=== PATIENT | female | born 1995 | race Caucasian/White ===

== ENCOUNTER 2023-07-18 19:22 | Emergency (ER) | payer OTHER ==
[~2023-07-18] VITALS: Ht 154.9 cm; Wt 80.7 kg
[2023-07-18 21:09] LABS: HEMATOCRIT 38.4 % (36.0-45.00); HEMOGLOBIN 12.7 g/dL (12.0-15.00); MEAN CELL VOLUME 88.9 fL (80.00-100.00); MEAN CORPUSCULAR HEMOGLOBIN 29.4 pg (27.00-32.0); MEAN CORPUSCULAR HGB CONC 33.1 g/dl (32.0-36.0); PLATELET COUNT 234 K/uL (150-450); RED BLOOD COUNT 4.31 M/uL (4.00-6.00); RED CELL DISTRIBUTION WIDTH 15.6 % (11.5-14.5)
[2023-07-18] MEDS ORDERED: NORFLEX100MG PO (21:59)
[2023-07-18] MEDS ORDERED: DICLOFENAC POTA50 MG PO (21:59)
== END 2023-07-18 22:55 | disposition home or self-care (01) ==
LOC: ER 19:23
PROVIDERS: General Practice
DX: R07.89 Other chest pain (principal)

== ENCOUNTER 2024-12-24 22:25 | Emergency (ER) | payer OTHER ==
[~2024-12-24] VITALS: Ht 154.9 cm; Wt 68.0 kg
[~2024-12-24 22:25] MED LIST: DICLOFENAC POTA50 MG PO; NORFLEX100MG PO
== END 2024-12-25 02:12 | disposition home or self-care (01) ==
LOC: ER 22:26
DX: J31.0 Chronic rhinitis (principal)

== ENCOUNTER 2025-02-04 15:53 | Emergency (ER) | payer OTHER ==
[~2025-02-04] VITALS: Ht 154.9 cm; Wt 68.0 kg
[2025-02-04] MEDS ORDERED: MORPHINE SULFATE 2 MG/ML SYRINGE IV ONE (17:15)
[2025-02-04] MEDS ORDERED: FAMOtidine 10 MG/ML (4ML VIAL) IV ONE (17:15)
[2025-02-04] MEDS ORDERED: FAMOTIDINE/PF 20 MG/2 ML VIAL ONE (17:24)
[2025-02-04 17:50] LABS: BASO % 0.1 % (0.1-1.2); EOS # 0.03 (0.04-0.54); EOS % 0.4 % (0.7-7.0); HEMATOCRIT 42.2 % (34.1-44.9); HEMOGLOBIN 14.2 g/dL (11.2-15.7); LYMPH # 0.85 (1.18-3.74); LYMPH % 10.9 % (19.3-53.1); MEAN CORPUSCULAR HEMOGLOBIN 30.4 pg (25.6-32.2); MONO # 0.31 (0.24-0.82); NEUT # 6.55 (1.56-6.13); NEUT % 84.3 % (34.0-71.1); PLATELET COUNT 249 K/uL (163-369); RED BLOOD COUNT 4.67 M/uL (3.93-5.22); RED CELL DISTRIBUTION WIDTH 14.6 % (11.6-14.4)
[2025-02-04 18:08] LABS: INR 1.02; PARTIAL THROMBOPLASTIN TIME 26.9 SECONDS (22.0-34.0); PROTHROMBIN TIME 11.1 SECONDS (9.0-11.5)
[2025-02-04 18:26] LABS: ALBUMIN 4.1 gm/dL (3.4-5.0); BILIRUBIN TOTAL 1.08 mg/dL (0.3-1.2); CREATININE SERUM 0.81 mg/dL (0.55-1.02); GFR 84.19; GLOBULINA 3.6 G/DL (2.4-3.5); POTASSIUM 4.13 mEq/L (3.5-5.1); TOTAL PROTEIN 7.7 gm/dL (6.4-8.2)
[2025-02-04] MEDS ORDERED: NORFLEX100MG PO (21:56)
== END 2025-02-04 22:02 | disposition home or self-care (01) ==
LOC: ER 15:53
PROVIDERS: General Practice
DX: R10.2 Pelvic and perineal pain (principal)